=== PATIENT | male | born 1995 | race Two or more races ===

== ENCOUNTER 2016-11-23 21:05 | Emergency (ER) | payer OTHER | END 2016-11-23 21:38 | disposition home or self-care (01) | LOC: ER 21:05 | PROC: 2W3DX1Z Immobilization of Left Lower Arm using Splint (ICD-10-PCS; principal; 2016-11-23) | DX: S60.212A Contusion of left wrist, initial encounter (principal); W21.03XA Struck by baseball, initial encounter; Y93.89 Activity, other specified | CPT/HCPCS: 73110-LT; 99283 ==